=== PATIENT | female | born 1990 | race Hispanic/Latino ===

== ENCOUNTER 2019-02-24 11:05 | Emergency (ER) | payer SELFPAY ==
[~2019-02-24 11:05] MED LIST: ACET1TAB12 PO; CIPR-245 PO; METR500T PO
== END 2019-02-24 12:28 | disposition home or self-care (01) ==
LOC: EDH 11:05
DX: S93.492A Sprain of other ligament of left ankle, initial encounter (principal); Z90.49 Acquired absence of other specified parts of digestive tract; X58.XXXA Exposure to other specified factors, initial encounter; Y93.89 Activity, other specified; Y92.89 Other specified places as the place of occurrence of the external cause; Y99.8 Other external cause status
CPT/HCPCS: 73610

== ENCOUNTER 2023-01-23 08:47 | Emergency (ER) | payer BC, MEDICAID, OTHER ==
[~2023-01-23] VITALS: Ht 157.5 cm; Wt 83.9 kg
[~2023-01-23 08:47] MED LIST changes: -CIPR-245 PO; +CIPR500T10 PO
[2023-01-23 08:51] VITALS: BP 123/61
[2023-01-23 09:24] LABS: BASOPHILS % (AUTO) 0.4 % (0.0-5.0); EOSINOPHILS % (AUTO) 0.9 % (0.0-8.0); LYMPHOCYTES % (AUTO) 21.5 % (21.0-51.0); MEAN CORPUSCULAR VOLUME 85.3 fL (79-99); MONOCYTES % (AUTO) 5.4 % (3.0-13.0); NEUTROPHILS % (AUTO) 70.8 % (40.0-77.0); PLATELET COUNT (AUTO) 227 K/uL (130-400); RED BLOOD CELL COUNT(AUTO) 4.69 MIL/uL (4.00-5.50); RED CELL DISTRIBUTION WIDTH 12.8 % (11.0-15.5); WHITE BLOOD COUNT (AUTO) 8.1 K/uL (4.8-10.8)
[2023-01-23 09:33] LABS: CREATININE 0.5 mg/dL (0.5-1.5); POTASSIUM 3.4 mmol/L (3.5-5.1)
[2023-01-23 09:33] LABS: APPEARANCE,URINE TURBID (CLEAR); BILIRUBIN,URINE NEGATIVE (NEGATIVE); COLOR,URINE YELLOW (YELLOW); GLUCOSE, URINE (UA) NEGATIVE (NEGATIVE); KETONES,URINE NEGATIVE (NEGATIVE); LEUKOCYTE ESTERASE ,URINE NEGATIVE Leu/uL (NEGATIVE); NITRATE,URINE NEGATIVE (NEGATIVE); OCCULT BLOOD,URINE NEGATIVE (NEGATIVE); PH,URINE 7.5 (5.0-8.0); PROTEIN,URINE 20 mg/dL (NEGATIVE); UROBILINOGEN,URINE 0.2 mg/dL (0.2-1.0)
[2023-01-23 09:55] LABS: BACTERIA,URINE Moderate /HPF (None Seen); RBC,URINE None Seen /HPF (0-1); WBC,URINE 0-1 /HPF (0-1)
[2023-01-23 10:01] LABS: ALBUMIN 3.4 g/dL (3.5-5.0); TOTAL PROTEIN, SERUM 7.4 g/dL (6.0-8.3)
[2023-01-23] MEDS ORDERED: CEPH500B PO (10:56)
[2023-01-23] MEDS ORDERED: ACETAMINOPHEN 500 MG TABLET PO ONE (11:00)
[2023-01-23] MEDS ORDERED: 0.9%NACL 1000ML 1,000 ML IV ONE (11:00)
[2023-01-23] MEDS ORDERED: CEFTRIAXONE 1G VIAL IVP ONE (11:00)
== END 2023-01-23 11:55 | disposition home or self-care (01) ==
LOC: EDH 08:47
DX: O26.891 Other specified pregnancy related conditions, first trimester (principal); R10.30 Lower abdominal pain, unspecified; R82.71 Bacteriuria; Z79.899 Other long term (current) drug therapy
CPT/HCPCS: 99285; 96374; 76801; 96361; 80053; 84702; 83690; 85025; 87088; 81001; 36415; J7030; J0696

== ENCOUNTER 2023-04-15 07:30 | Emergency (ER) | payer BC, MEDICAID ==
[~2023-04-15] VITALS: Ht 154.9 cm; Wt 90.7 kg
[~2023-04-15 07:30] MED LIST changes: +CEPH500B PO
[2023-04-15 07:35] VITALS: BP 127/73
[2023-04-15] MEDS ORDERED: [UNRECOGNIZED DRUG - CODE] PO (09:17)
== END 2023-04-15 09:32 | disposition home or self-care (01) ==
LOC: EDH 07:30
DX: J02.9 Acute pharyngitis, unspecified (principal); O99.512 Diseases of the respiratory system complicating pregnancy, second trimester; Z20.822 Contact with and (suspected) exposure to COVID-19; Z3A.24 24 weeks gestation of pregnancy; Z79.899 Other long term (current) drug therapy; Z90.89 Acquired absence of other organs
CPT/HCPCS: 99283; 87635; 87880; 87804 ×2; C9803

== ENCOUNTER 2024-05-22 07:04 | Day surgery (SDC) | payer BC, MEDICAID ==
[2024-05-21 15:16] VITALS: BP 143/68; PULSE 90; RESP 18
[2024-05-21 15:22] LABS: BASOPHILS # (AUTO) 0.03 K/uL (0.00-0.20); BASOPHILS % (AUTO) 0.3 % (0.0-5.0); EOSINOPHILS # (AUTO) 0.13 K/uL (0.00-0.70); EOSINOPHILS % (AUTO) 1.4 % (0.0-8.0); HEMATOCRIT 40.1 % (36-48); IMMATURE GRANULOCYTE ABSOLUTE 0.03 K/uL (0-1); LYMPHOCYTES # (AUTO) 2.5 K/uL (1.0-4.8); LYMPHOCYTES % (AUTO) 26.5 % (21.0-51.0); MEAN CORPUSCULAR HEMOGLOBIN 27.5 pg (27.0-33.0); MEAN CORPUSCULAR HGB CONC 32.4 g/dL (32.0-36.0); MONOCYTES # (AUTO) 0.4 K/uL (0.1-1.0); MONOCYTES % (AUTO) 4.7 % (3.0-13.0); NEUTROPHILS # (AUTO) 6.2 K/uL (1.8-7.7); NEUTROPHILS % (AUTO) 66.8 % (40.0-77.0); PLATELET COUNT (AUTO) 289 K/uL (130-400); RED BLOOD CELL COUNT(AUTO) 4.72 MIL/uL (4.00-5.50); RED CELL DISTRIBUTION WIDTH 13.3 % (11.0-15.5); WHITE BLOOD COUNT (AUTO) 9.3 K/uL (4.8-10.8)
[~2024-05-22] VITALS: Ht 157.5 cm; Wt 93.3 kg
[2024-05-22 07:15] VITALS: BP 118/77; PULSE 81; RESP 16
[2024-05-22] MEDS: ceFAZolin SODIUM 2 GM VIAL ONE (07:50)
[2024-05-22] MEDS: LACTATED RINGERS 1000ML 1,000 ML IV ONE (07:50)
[2024-05-22] MEDS: ceFAZolin SODIUM 2 GM VIAL IVPB ONE (08:00)
[2024-05-22] MEDS ORDERED: LIDOCAINE PF 100MG/5ML (2%) SYRINGE 5ML ONE (09:04)
[2024-05-22] MEDS ORDERED: MIDAZOLAM HCL 1 MG/ML 2ML VIAL ONE (09:04)
[2024-05-22] MEDS ORDERED: FENTanyl CITRate PF 50 MCG/1 ML 2ML VIAL ONE (09:04)
[2024-05-22] MEDS ORDERED: proPOFol 10 MG/ML 20ML VIAL IV ONE (09:04)
[2024-05-22] MEDS ORDERED: SUCCINYLCHOLINE CHLORIDE 20 MG/ML 10 ML VIAL ONE (09:04)
[2024-05-22 10:10] VITALS: BP 97/43; PULSE 89; RESP 16
[2024-05-22 10:25] VITALS: BP 103/56; PULSE 92; RESP 16
[2024-05-22 10:38] VITALS: BP 116/60; PULSE 90; RESP 16
== END 2024-05-22 10:52 | disposition home or self-care (01) ==
LOC: DAH 07:04
PROVIDERS: ATTEND Obstetrics & Gynecology
DX: O03.4 Incomplete spontaneous abortion without complication (principal); E66.9 Obesity, unspecified; Z79.899 Other long term (current) drug therapy; Z90.49 Acquired absence of other specified parts of digestive tract
CPT/HCPCS: 84703; 85025; 86850; 86900; 86901; 36415; 59812; 88305; A6260; A4663; J7030; A4351 ×2; J7120; J3010; J0330; J2001; J2250; J2704; J0690 ×2; A4215; A4223; A4222; A4221; A4600; J3490

== ENCOUNTER 2024-10-11 18:42 | Emergency (ER) | payer BC, MEDICAID ==
[~2024-10-11] VITALS: Ht 157.5 cm; Wt 96.2 kg
[2024-10-11 19:19] LABS: BASOPHILS # (AUTO) 0.03 K/uL (0.00-0.20); BASOPHILS % (AUTO) 0.3 % (0.0-5.0); EOSINOPHILS % (AUTO) 0.9 % (0.0-8.0); LYMPHOCYTES # (AUTO) 2.2 K/uL (1.0-4.8); LYMPHOCYTES % (AUTO) 19.7 % (21.0-51.0); MEAN CORPUSCULAR HEMOGLOBIN 27.6 pg (27.0-33.0); MEAN CORPUSCULAR HGB CONC 32.9 g/dL (32.0-36.0); MEAN CORPUSCULAR VOLUME 83.7 fL (79-99); MONOCYTES # (AUTO) 0.5 K/uL (0.1-1.0); MONOCYTES % (AUTO) 4.8 % (3.0-13.0); NEUTROPHILS # (AUTO) 8.3 K/uL (1.8-7.7); NEUTROPHILS % (AUTO) 73.4 % (40.0-77.0); PLATELET COUNT (AUTO) 266 K/uL (130-400); RED CELL DISTRIBUTION WIDTH 13.7 % (11.0-15.5); WHITE BLOOD COUNT (AUTO) 11.3 K/uL (4.8-10.8)
[2024-10-11 19:30] LABS: CARBON DIOXIDE 25 mmol/L (21-32); CHLORIDE 101 mmol/L (101-111); CREATININE 0.5 mg/dL (0.5-1.0); GLOMERULAR FILTR. RATE CALC 127 mL/min (>90); GLUCOSE,RANDOM 88 mg/dL (70-105); POTASSIUM 3.9 mmol/L (3.5-5.1); SODIUM SERUM 139 mmol/L (136-145); UREA NITROGEN, BLOOD 6 mg/dL (7-18)
[2024-10-11] MEDS: ondanSETRON 4MG INJ IVP ONE (19:37)
[2024-10-11] MEDS: 0.9%NACL 1000ML 1,000 ML IV ONE (19:37)
[2024-10-11 19:43] LABS: APPEARANCE,URINE CLOUDY (CLEAR); BILIRUBIN,URINE NEGATIVE (NEGATIVE); COLOR,URINE LIGHT-YELLOW (YELLOW); GLUCOSE, URINE (UA) NEGATIVE (NEGATIVE); KETONES,URINE NEGATIVE (NEGATIVE); LEUKOCYTE ESTERASE ,URINE 75 Leu/uL (NEGATIVE); NITRATE,URINE NEGATIVE (NEGATIVE); OCCULT BLOOD,URINE NEGATIVE (NEGATIVE); PROTEIN,URINE NEGATIVE (NEGATIVE); UROBILINOGEN,URINE 0.2 mg/dL (0.2-1.0)
[2024-10-11 19:48] LABS: ADD UA MICROSCOPIC YES
[2024-10-11 19:52] LABS: BACTERIA,URINE RARE /HPF (None Seen); MUCUS,URINE RARE LPF (None Seen); SQUAMOUS EPITHELIAL CELL,UR FEW /HPF (0-2)
--- NOTE | 2024-10-11 19:54 | HMCIMG ---
ULTRASOUND OF THE PELVIS ULTRASOUND ABD VASCULAR LIMITED INDICATION: Pelvic pain COMPARISONS: None TECHNIQUE: Transabdominal real-time sonographic images were acquired earlier, and subsequently made available for review. FINDINGS: The uterus measures 12.1 x 6.1 x 7.0 cm. The uterus is normal in echotexture and contour. Single live intrauterine gestation corresponds to sonographic gestational age of 8 weeks 6 days based on crown-rump length of 2.5 cm. No abnormal subchorionic hypoechoic area demonstrated. heart rate = 167 BPM. Yolk sac appears normal. The right ovary measures 4.2 x 2.3 x 2.5 cm. To 0.67 m simple right ovarian cyst demonstrated. No right adnexal masses demonstrated. Color Doppler flow is normal throughout the right ovary. Spectral Doppler analysis demonstrates a normal waveform pattern. The left ovary measures 2.3 x 1.9 x 2.1 cm. The left ovary is normal in size, shape and echogenicity. No left adnexal masses demonstrated. Color Doppler flow is normal throughout the left ovary. Spectral Doppler analysis demonstrates a normal waveform pattern. No free pelvic fluid demonstrated. IMPRESSION: 1. Single live intrauterine gestation corresponding to sonographic gestational age of 8 weeks 6 days based on crown-rump length, and with heart rate = 167 BPM. 2. No evidence for subchorionic hemorrhage. 3. KARINA = 05/17/2025. 4. Additional minor findings and pertinent negatives as reported.
[2024-10-11 19:55] LABS: ALANINE AMINOTRANSFERASE 22 U/L (12-78); ALBUMIN 3.3 g/dL (3.5-5.0); ASPARTATE AMINOTRANSFERASE 18 U/L (10-37); BILIRUBIN,DIRECT < 0.1 mg/dL (0.0-0.3); BILIRUBIN,TOTAL 0.3 mg/dL (0.2-1.0); HCG,QUANTITATIVE 85580 mIU/mL (0-5); TOTAL PROTEIN, SERUM 7.3 g/dL (6.0-8.3)
[2024-10-11] MEDS ORDERED: ONDA-243 PO (20:48)
--- NOTE | 2024-10-11 20:48 | ERN ---
General Chief Complaint: Vomiting in Stated Complaint: N/V IN , 10 WEEKS Time Seen by MD: 18:45 Time Seen by Midlevel: 18:45 Source: patient History of Present Illness Initial Comments Patient is a 34-year-old female who is currently approximately 10 weeks presenting to the emergency department for evaluation of nausea and vomiting that has been ongoing for the last two days. She has been unable to see her OBGYN for this issue. Patient reports being a A1. She specifically denies any abdominal cramping, vaginal bleeding, or any other symptoms at this time. Patient states she has been unable to hold any food down. Allergies: Coded Allergies: No Known Allergies (Unverified Allergy, Unknown, 02/21/15) Home Meds Active Scripts Cephalexin Monohydrate (Keflex) 500 Mg Cap, 500 MG PO QID for 7 Days, #28 CAP Prov:THAI CHI 10/11/24 Ondansetron (Ondansetron Odt) 4 Mg Tab.rapdis, 4 MG PO BID for 7 Days, #14 TAB Prov:THAI CHI 10/11/24 Past Medical History Past Medical History: No Pertinent History Past Surgical History: Cholecystectomy Female( History) LMP: Jul 28, 2024 : 6 Para: 4 Aborts: 1 ROS Dictation CONSTITUTIONAL: Negative except for HPI HEAD/FACE: Negative except for HPI EENT: Negative except for HPI RESPIRATORY: Negative except for HPI GASTROINTESTINAL/ABDOMINAL: Negative except for HPI GENITOURINARY: Negative except for HPI MUSCULOSKELETAL: Negative except for HPI INTEGUMENTARY: Negative except for HPI NEUROLOGICAL/PSYCH: Negative except for HPI HEMATOLOGIC/LYMPHATIC: Negative except for HPI All Systems Negative, Except as noted above. 13 point review of systems assessed and all negative except for above. Physical Exam Physical Exam Dictation Vital Signs reviewed General Appearance: Alert, oriented x 3, no acute distress, well developed, nourished. Head and Face: non-traumatic. Eyes: PERRL, pink conjunctivas, eyelid no trauma, anterior chamber with arcus senilis. Ears: Pinnas intact and no signs of trauma or erythema ear canals clear and no discharge TM no erythema Nose: No discharge, no bleeding. Oropharynx: Mouth normal, tongue pink, pharynx clear,no erythema, tonsils no exudates, no abscesses noted, mucous membrane moist Neck: Supple, non-tender, no thyromegaly, no masses, no JVD, no bruits Breast:Deferred Chest:No tenderness, no crepitus, no paradoxical movement, no retractions Lungs:Clear, well-ventilated, symmetric, no rales, no wheezing, no rhonchi, no stridor, good breath sounds bilaterally Heart: Regular rate, regular rhythm, no murmur, no gallops Vascular: no peripheral edema, Abdomen: Soft, positive bowel sounds, nondistended, no guarding, nontender, no rebound, no masses no hepatomegaly, no splenomegaly, no Diaz's sign, no hernias. Rectal: Deferred Genital: Deferred Neurological: Normal speech, motor function intact, sensory function intact Musculoskeletal: Neck nontender, full range of motion, back nontender, full range of motion, Extremities: nontender, full range of motion Skin: Color pink, dry, no turgor, no rash, no lacerations, no abrasions, no contusions. Lymphatic: Deferred Results Laboratory and Microbiology Lab and Micro Result Laboratory Tests Test 10/11/24 19:00 10/11/24 19:36 White Blood Count 11.3 K/uL (4.8-10.8) H Red Blood Count 4.90 MIL/uL (4.00-5.50) Hemoglobin 13.5 g/dL (12.0-16.0) Hematocrit 41.0 % (36-48) Mean Corpuscular Volume 83.7 fL (79-99) Mean Corpuscular Hemoglobin 27.6 pg (27.0-33.0) Mean Corpuscular Hemoglobin Concent 32.9 g/dL (32.0-36.0) Red Cell Distribution Width 13.7 % (11.0-15.5) Platelet Count 266 K/uL (130-400) Mean Platelet Volume 10.6 fL (7.5-10.5) H Immature Granulocyte % (Auto) 0.9 % (0-1) Neutrophils (%) (Auto) 73.4 % (40.0-77.0) Lymphocytes (%) (Auto) 19.7 % (21.0-51.0) L Monocytes (%) (Auto) 4.8 % (3.0-13.0) Eosinophils (%) (Auto) 0.9 % (0.0-8.0) Basophils (%) (Auto) 0.3 % (0.0-5.0) Neutrophils # (Auto) 8.3 K/uL (1.8-7.7) H Lymphocytes # (Auto) 2.2 K/uL (1.0-4.8) Monocytes # (Auto) 0.5 K/uL (0.1-1.0) Eosinophils # (Auto) 0.10 K/uL (0.00-0.70) Basophils # (Auto) 0.03 K/uL (0.00-0.20) Absolute Immature Granulocyte (auto 0.10 K/uL (0-1) Nucleated Red Blood Cells 0.0 % (0.0-0.19) Sodium Level 139 mmol/L (136-145) Potassium Level 3.9 mmol/L (3.5-5.1) Chloride Level 101 mmol/L (101-111) Carbon Dioxide Level 25 mmol/L (21-32) Blood Urea Nitrogen 6 mg/dL (7-18) L Creatinine 0.5 mg/dL (0.5-1.0) Glomerular Filtration Rate Calc 127 mL/min (>90) Random Glucose 88 mg/dL (70-105) Total Calcium 9.5 mg/dL (8.5-10.1) Total Bilirubin 0.3 mg/dL (0.2-1.0) Direct Bilirubin < 0.1 mg/dL (0.0-0.3) Aspartate Amino Transf (AST/SGOT) 18 U/L (10-37) Alanine Aminotransferase (ALT/SGPT) 22 U/L (12-78) Alkaline Phosphatase 70 U/L (50-136) Total Protein 7.3 g/dL (6.0-8.3) Albumin 3.3 g/dL (3.5-5.0) L Lipase 31 U/L (16-77) Human Chorionic Gonadotropin, Quant 69740 mIU/mL (0-5) H Urine Color LIGHT-YELLOW (YELLOW) Urine Appearance CLOUDY (CLEAR) H Urine pH 7.0 (5.0-8.0) Urine Specific [place] 1.012 (1.001-1.031) Urine Protein NEGATIVE mg/dL (NEGATIVE) Urine Glucose (UA) NEGATIVE mg/dL (NEGATIVE) Urine Ketones NEGATIVE mg/dL (NEGATIVE) Urine Occult Blood NEGATIVE (NEGATIVE) Urine Nitrate NEGATIVE (NEGATIVE) Urine Bilirubin NEGATIVE mg/dL (NEGATIVE) Urine Urobilinogen 0.2 mg/dL (0.2-1.0) Urine Leukocyte Esterase 75 Alvaro/uL (NEGATIVE) H Urine RBC 2-5 /HPF (0-1) H Urine WBC 2-5 /HPF (0-1) H Urine Squamous Epithelial Cells FEW /HPF (0-2) Urine Bacteria RARE /HPF (None Seen) Labs Reviewed?: Yes MDM MDM: Patient is a 34-year-old female who is currently approximately 10 weeks presenting to the emergency department for evaluation of nausea and vomiting that has been ongoing for the last two days. She has been unable to see her OBGYN for this issue. Patient reports being a A1. She specifically denies any abdominal cramping, vaginal bleeding, or any other symptoms at this time. Patient states she has been unable to hold any food down. On physical examination patient is in no acute distress. Patient is not actively vomiting. Vital signs are stable. Patient is afebrile. CBC shows a slight bump in her white blood cell count however the remainder of her blood work is unremarkable. Elevation in the white blood cell count may be related to a stress reaction from her episodes of vomiting. There are no clinical signs of pyelonephritis. She was no CVA tenderness. She specifically denies any abdominal cramping, vaginal bleeding, dysuria, hematuria, or any other symptoms at this time. She is afebrile and nontoxic appearing. She was given a L of IV fluids and Zofran. On repeat examination patient reports feeling significantly improved. She states her nausea and vomiting have completely resolved. An ultrasound was performed which shows a single live intrauterine gestation measuring approximately eight weeks with positive heart tones. Lab and imaging was discussed with the patient patient will be discharged home with supportive management. Patient was advised to keep appointment with her OBGYN as scheduled later this month. Return precautions discussed Differential diagnosis: Hyperemesis gravidarum, electrolyte abnormality, dehydration, urinary tract infection, pyelonephritis There are no social concerns with this patient. Prescription drug management Prescriptions will include: Zofran Medical management and examination interpretation discussions were had by me with other qualified healthcare professionals as indicated for the patient's care. ED Course Orders Procedure Category Date Status Time Cbc With Differential LAB 10/11/24 Complete 18:47 Basic Metabolic Panel LAB 10/11/24 Complete 18:47 Hepatic Function Panel LAB 10/11/24 Complete 18:47 Lipase LAB 10/11/24 Complete 18:47 Hcg,Quantitative LAB 10/11/24 Complete 18:47 Urinalysis Profile LAB 10/11/24 Complete 18:47 Ondansetron 4mg Inj PHA 10/11/24 Complete (Zofran 4mg Inj) 19:00 0.9%Nacl 1000ml (Ns PHA 10/11/24 Complete 1000ml) 19:00 Us Ob <14 Weeks US 10/11/24 Resulted 18:54 Culture Urine DELTA 10/11/24 Logged 19:48 Ceftriaxone 1g Vial PHA 10/11/24 Complete (Rocephine 1g Inj) 20:30 *Nursing CPOE 10/11/24 Transmitted Communication: 20:39 Current Medications Medications (Trade) Dose Ordered Sig/Cecilia Route PRN Reason Start Time Stop Time Status Last Admin Dose Admin Ceftriaxone Sodium (ROCEphine 1G INJ) 1 gm ONCE ONCE IVPB 10/11/24 20:30 10/11/24 20:31 DC Ondansetron HCl (zoFRAN 4MG INJ) 4 mg ONCE ONCE IVP 10/11/24 19:00 10/11/24 19:01 DC 10/11/24 19:37 Sodium Chloride 1,000 ml @ 0 mls/hr ONCE ONCE IV 10/11/24 19:00 10/11/24 19:01 DC 10/11/24 19:37 Vital Signs Date Time Temp Pulse Resp B/P (MAP) Pulse Ox O2 Delivery O2 Flow Rate FiO2 10/11/24 20:11 97.9 78 18 134/64 100 Room Air* 0 21 10/11/24 18:43 98.2 84 16 132/80 100 Room Air 0 [place] [id number] [address] IMAGING REPORT Signed PATIENT: KRISTIE PRIETO MR#: [id number] : 1990 SEX: F AGE: 34 LOCATION: [facility] ORDER 56 STATUS: REG ER REPORT#: [id number] SERVICE 53 REASON: n/v/abd pain during approx 10 weeks ORDERING PHYSICIAN: THAI CHI PROCEDURE: OB <14 - US OB <14 WEEKS ULTRASOUND OF THE PELVIS ULTRASOUND ABD VASCULAR LIMITED INDICATION: Pelvic pain COMPARISONS: None TECHNIQUE: Transabdominal real-time sonographic images were acquired earlier, and subsequently made available for review. FINDINGS: The uterus measures 12.1 x 6.1 x 7.0 cm. The uterus is normal in echotexture and contour. Single live intrauterine gestation corresponds to sonographic gestational age of 8 weeks 6 days based on crown-rump length of 2.5 cm. No abnormal subchorionic hypoechoic area demonstrated. heart rate = 167 BPM. Yolk sac appears normal. The right ovary measures 4.2 x 2.3 x 2.5 cm. To 0.67 m simple right ovarian cyst demonstrated. No right adnexal masses demonstrated. Color Doppler flow is normal throughout the right ovary. Spectral Doppler analysis demonstrates a normal waveform pattern. The left ovary measures 2.3 x 1.9 x 2.1 cm. The left ovary is normal in size, shape and echogenicity. No left adnexal masses demonstrated. Color Doppler flow is normal throughout the left ovary. Spectral Doppler analysis demonstrates a normal waveform pattern. No free pelvic fluid demonstrated. IMPRESSION: 1. Single live intrauterine gestation corresponding to sonographic gestational age of 8 weeks 6 days based on crown-rump length, and with heart rate = 167 BPM. 2. No evidence for subchorionic hemorrhage. 3. KARINA = 05/17/2025. 4. Additional minor findings and pertinent negatives as reported. DICTATED BY: ENRIKE DUNCAN MD DATE: 10/11/241950 ELECTRONICALLY SIGNED BY: ENRIKE DUNCAN MD DATE: 10/11/241953 DX & DISP Disposition: Discharge Departure Impression: Primary Impression: Nausea and vomiting during Additional Impression: Urinary tract infection Condition: Stable Scripts Ondansetron (Ondansetron Odt) 4 Mg Tab.rapdis 4 MG PO BID for 7 Days, #14 TAB Prov: THAI CHI 10/11/24 Additional Instructions: Your blood work today is unremarkable. It appears your nausea and vomiting is related to your 1st trimester . Your pelvic ultrasound reveals a single live intrauterine gestation corresponding to a gestational age of eight weeks and six days. There is a heart rate of 167 beats per minute. Please follow up with your OBGYN as scheduled. Return to the ER if you develop any new or worsening symptoms. Referrals: SELF,REFERRAL (PCP) Time of Disposition: 20:47 I have reviewed the case, and I agree with, Diagnosis and Plan I performed the substantive portion of the visit. I have reviewed and personally made and approve the management plan that is documented in the note by myself or the LORI. I acknowledge for responsibility for the patient's management plan. THAI CHI Oct 11, 2024 20:48
[2024-10-11] MEDS ORDERED: CEPH500B PO (21:03)
[2024-10-11] MEDS: cefTRIAXone 1G VIAL IVPB ONE (21:19)
[2024-10-11 21:30] VITALS: BP 132/72; PULSE 72; RESP 16; TEMP 98.2; O2SAT 100
== END 2024-10-11 21:31 | disposition home or self-care (01) ==
LOC: EDH 18:42
DX: O23.41 Unspecified infection of urinary tract in pregnancy, first trimester (principal); N39.0 Urinary tract infection, site not specified; O21.9 Vomiting of pregnancy, unspecified; R10.2 Pelvic and perineal pain; Z3A.10 10 weeks gestation of pregnancy; Z79.899 Other long term (current) drug therapy; Z90.49 Acquired absence of other specified parts of digestive tract
CPT/HCPCS: 99284; 96374; 76801; 96375; 80076; 80048; 84702; 83690; 85025; 87086; 81001; 36415; J7030; J0696; J2405

== ENCOUNTER 2024-12-09 17:03 | Emergency (ER) | payer BC, MEDICAID ==
[~2024-12-09] VITALS: Ht 157.5 cm; Wt 99.8 kg
[~2024-12-09 17:03] MED LIST changes: -ACET1TAB12 PO; -CIPR500T10 PO; -METR500T PO; +ONDA-243 PO
[2024-12-09 17:50] LABS: RAPID GROUP A STREP negative (NEGATIVE)
[2024-12-09 17:59] LABS: COVID19 (SARS ANTIGEN RAPID) PRESUMPTIVE NEGATIVE (NEGATIVE); INFLUENZA TYPE A Negative For Type A (NEGATIVE); INFLUENZA TYPE B Negative For Type B (NEGATIVE)
--- NOTE | 2024-12-09 18:05 | ERN ---
General Chief Complaint: Cough Stated Complaint: COUGH, CONGESTION Time Seen by MD: 17:04 Time Seen by Midlevel: 17:04 Source: patient History of Present Illness Initial Comments 34-year-old female who presents to the emergency department due to flu-like symptoms onset four days. Patient reports cough, congestion, abdominal pain but denies any dysuria, fevers, diarrhea or further associated symptoms. Patient reports she is currently 19 weeks , OBGYN is Dr. Nicholson. States abdominal pain is mainly when coughing, denies any vaginal bleeding or further associated symptoms. Denies significant past medical history. Allergies: Coded Allergies: No Known Allergies (Unverified Allergy, Unknown, 02/21/15) Home Meds Active Scripts Cephalexin Monohydrate (Keflex) 500 Mg Cap, 500 MG PO QID for 7 Days, #28 CAP Prov:THAI CHI 10/11/24 Ondansetron (Ondansetron Odt) 4 Mg Tab.rapdis, 4 MG PO BID for 7 Days, #14 TAB Prov:THAI CHI 10/11/24 Past Medical History Past Medical History: No Pertinent History Past Surgical History: Cholecystectomy Female( History) : 6 Para: 4 Aborts: 1 ROS Dictation Constitutional: Negative for fever,chills, and weight loss Eyes: Negative for injury, pain,redness, and discharge ENT: Positive for congestion Negative for injury,pain or swelling Cardiovascular: Negative for chest pain, palpitations, and edema Respiratory: Positive for cough Negative for shortness of breath, and wheezing Abdomen/GI: Positive for abdominal pain Negative for nausea, vomiting, diarrhea , and constipation Back: Negative for injury and pain : Negative for painful urination, bleeding or discharge MS/Extremity: Negative for injury and deformity Skin: Negative for rash, and discoloration Neuro: Negative for headache, weakness, numbness, tingling, and seizure Psych: Negative for suicide ideation, homicidal ideation, and hallucinations Physical Exam Physical Exam Dictation General: awake, alert, no acute distress Head/Face: Normocephalic, atraumatic Eyes: PERRL, EOMI, normal conjunctiva ENT: oral cavity clear, oral mucosa moist Neck: Supple, normal range of motion Cardiovascular: RRR, normal S1/S2 Respiratory: CTAB, no respiratory distress, no rales or wheezes Abdomen: Soft, non-tender, non-distended, no guarding or rebound. Skin: Warm, dry, normal turgor, no rash MS/Extremity: Pulses equal, no cyanosis, neurovascular intact, FROM Neuro: COAx4, GCS 15, no neurological deficits, normal gait Psych: Normal behavior, mood, and affect normal Results Laboratory and Microbiology Lab and Micro Result Laboratory Tests Test 12/09/24 17:18 12/09/24 17:50 Influenza Type A Antigen Negative For Type A Influenza Type B Antigen Negative For Type B SARS-CoV-2 Antigen (Rapid) PRESUMPTIVE NEGATIVE Group A Streptococcus Rapid negative (NEGATIVE) Urine Color COLORLESS (YELLOW) Urine Appearance CLEAR (CLEAR) Urine pH 7.0 (5.0-8.0) Urine Specific [place] 1.005 (1.001-1.031) Urine Protein NEGATIVE mg/dL (NEGATIVE) Urine Glucose (UA) NEGATIVE mg/dL (NEGATIVE) Urine Ketones NEGATIVE mg/dL (NEGATIVE) Urine Occult Blood NEGATIVE (NEGATIVE) Urine Nitrate NEGATIVE (NEGATIVE) Urine Bilirubin NEGATIVE mg/dL (NEGATIVE) Urine Urobilinogen 0.2 mg/dL (0.2-1.0) Urine Leukocyte Esterase NEGATIVE Alvaro/uL Urine RBC 2-5 /HPF (0-1) H Urine WBC 2-5 /HPF (0-1) H Urine Squamous Epithelial Cells RARE /HPF (0-2) Urine Bacteria RARE /HPF (None Seen) Labs Reviewed?: Yes EKG/XRAY/US/CT/MRI Ultrasound Comment REASON: Lower abdominal pain ORDERING PHYSICIAN: MENDEZ PHILLIPS PROCEDURE: FBP - US FBP WO NON-STRESS US FBP WO NON-STRESS COMPARISONS: None. INDICATION: Lower abdominal pain FINDINGS: Transabdominal sonograms through the gravid uterus. and An intrauterine gestation sac containing a single living fetus in longitudinal lie and breech presentation. Cervical os is closed. Fundal grade 1 placenta without previa demonstrated. Amniotic fluid index is 11.6 cm. heart motion is demonstrated with regular rate of 135 beats per minute. Results of biophysical profile examination are as follows: breathing movements: score 2/ 2 Gross body movements: score 2/ 2 tone: score 2/ 2 Qualitative AFV: score 2/ 2 TOTAL SCORE: score 8/ 8 IMPRESSION: Single living intrauterine in the breech presentation with heart rate of 135 bpm. Biophysical profile score is 8 out of 8. DICTATED BY: ENRIKE DUNCAN MD DATE: 12/09/241833 ELECTRONICALLY SIGNED BY: ENRIKE DUNCAN MD DATE: 12/09/241836 [facility] MDM: Differential diagnosis: Influenza, viral illness, strep Rationale:34-year-old female who presents to the emergency department due to flu-like symptoms onset four days. Patient reports cough, congestion, abdominal pain but denies any dysuria, vaginal bleeding, fevers, diarrhea or further associated symptoms. Patient reports she is currently 19 weeks , OBGYN is Dr. Nicholson. Denies significant past medical history. Per physical examination patient is in no acute distress, nonlabored breathing, abdomen is soft nontender. SARs, influenza, strep negative. UA negative for urinary tract infections. US FBP WO NON-STRESS performed with heart tones 135, biophysical profile 05/15. Patient verbalized she is not in any acute pain. Has a follow up appointment with OBGYN in two days. Patient was educated on findings and diagnosis. Advised to follow up with PCP. Return to the emergency department if any worsening symptoms. Patient verbalized understanding. Patient stable for discharge. There are no social concerns with this patient. I independently interpreted the test that were performed, results were reviewed by me and considered findings on radiology if ordered. Medical management and examination interpretation discussions were had by me wit h other qualified healthcare professionals as indicated for the patient's care. ED Course Orders Procedure Category Date Status Time Covid19 (Sars Antigen LAB 12/09/24 Complete Rapid) 17:13 Influenza Type A & B, LAB 12/09/24 Complete Rapid 17:13 Rapid (Group A Strep) LAB 12/09/24 Complete 17:13 Urinalysis LAB 12/09/24 Complete W/Microscopic 17:18 Us Fbp Wo Non-Stress US 12/09/24 Resulted 17:18 Vital Signs Date Time Temp Pulse Resp B/P (MAP) Pulse Ox O2 Delivery O2 Flow Rate FiO2 12/09/24 19:16 98.2 96 16 124/76 98 Room Air* 0 21 12/09/24 17:48 98.8 103 16 126/80 98 Room Air* 0 12/09/24 17:16 98.8 112 18 129/83 96 Room Air DX & DISP Disposition: Discharge Departure Impression: Primary Impression: Viral illness Additional Impression: Cough Condition: Stable Additional Instructions: Discharge home. Rest. Follow up with primary care DrDonavan in 24 hours. Return to the ER for any acute changes or worsening symptoms. If any medications were prescribed take as directed. Okay to continue home medications unless otherwise discussed during your visit in the emergency room today. Patient was also advised to follow-up with primary care physician in 1 to 2 days for continued monitoring. Referrals: SELF,REFERRAL (PCP) I performed the substantive portion of the visit. I have reviewed and p ersonally made and approve the management plan that is documented in the notes by myself or the LORI. I acknowledge full responsibility for the patient's management plan. MENDEZ PHILLIPS Dec 09, 2024 18:05
[2024-12-09 18:09] LABS: APPEARANCE,URINE CLEAR (CLEAR); BILIRUBIN,URINE NEGATIVE (NEGATIVE); COLOR,URINE COLORLESS (YELLOW); GLUCOSE, URINE (UA) NEGATIVE (NEGATIVE); KETONES,URINE NEGATIVE (NEGATIVE); LEUKOCYTE ESTERASE ,URINE NEGATIVE Leu/uL (NEGATIVE); NITRATE,URINE NEGATIVE (NEGATIVE); OCCULT BLOOD,URINE NEGATIVE (NEGATIVE); PROTEIN,URINE NEGATIVE (NEGATIVE); UROBILINOGEN,URINE 0.2 mg/dL (0.2-1.0)
[2024-12-09 18:14] LABS: BACTERIA,URINE RARE /HPF (None Seen); SQUAMOUS EPITHELIAL CELL,UR RARE /HPF (0-2)
--- NOTE | 2024-12-09 18:37 | HMCIMG ---
US FBP WO NON-STRESS COMPARISONS: None. INDICATION: Lower abdominal pain FINDINGS: Transabdominal sonograms through the gravid uterus. and An intrauterine gestation sac containing a single living fetus in longitudinal lie and breech presentation. Cervical os is closed. Fundal grade 1 placenta without previa demonstrated. Amniotic fluid index is 11.6 cm. heart motion is demonstrated with regular rate of 135 beats per minute. Results of biophysical profile examination are as follows: breathing movements: score 2/ 2 Gross body movements: score 2/ 2 tone: score 2/ 2 Qualitative AFV: score 2/ 2 TOTAL SCORE: score 8/ 8 IMPRESSION: Single living intrauterine in the breech presentation with heart rate of 135 bpm. Biophysical profile score is 8 out of 8.
[2024-12-09 19:16] VITALS: BP 124/76; PULSE 96; RESP 16; TEMP 98.3; O2SAT 98
== END 2024-12-09 19:26 | disposition home or self-care (01) ==
LOC: EDH 17:03
DX: O98.512 Other viral diseases complicating pregnancy, second trimester (principal); B34.9 Viral infection, unspecified; Z3A.19 19 weeks gestation of pregnancy; Z90.49 Acquired absence of other specified parts of digestive tract; Z20.822 Contact with and (suspected) exposure to COVID-19
CPT/HCPCS: 76819; 81001; 87426; 87804; 87880; 99284